=== PATIENT | female | born 1965 | race Caucasian/White ===

== ENCOUNTER 2019-06-11 08:42 | Emergency (ER) | payer BC ==
[2019-06-11 08:53] VITALS: BP 146/103
--- NOTE | 2019-06-11 10:08 | UC ---
Back Pain HPI - HPI Summary HPI Summary: 53 yo female presents with back pain. She tells me that yesterday she was shoveling snow and moving furniture - as the day progressed she noticed pain in her right middle back that "catches" and "spasms". She took a leftover tramadol last night that took the edge off. Took tylenol this morning with no relief. She denies specific injury, radiation of pain, numbness, tingling, SOB, chest pain, cough, urinary symptoms. - History of Current Complaint Chief Complaint: UCBackPain Stated Complaint: BACK SPASMS Time Seen by Provider: 06/11/19 10:08 Hx Obtained From: Patient Onset/Duration: Sudden Onset Severity Initially: Moderate Severity Currently: Severe Pain Intensity: 8 Pain Scale Used: 0-10 Numeric - Allergies/Home Medications Allergies/Adverse Reactions: Allergies Allergy/AdvReac Type Severity Reaction Status Date / Time No Known Allergies Allergy Verified 06/11/19 08:53 PMH/Surg Hx/FS Hx/Imm Hx Respiratory History: Asthma - Surgical History Surgical History: Yes Surgery Procedure, Year, and Place: TONSILS. RIGHT KNEE SCOPE-CLEANED UP. RIGHT ANKLE REMOVED SCAR TISSUE - Family History Known Family History: Positive: Hypertension - Social History Occupation: Employed Full-time Lives: With Family Alcohol Use: None Substance Use Type: None Smoking Status (MU): Never Smoked Tobacco - Immunization History Hx Tetanus, Diphtheria Vaccination: Yes - Confirmed Tetanus is UTD with PCP Review of Systems All Other Systems Reviewed And Are Negative: No Constitutional: Positive: Negative Skin: Positive: Negative Respiratory: Positive: Negative Cardiovascular: Positive: Negative Neurovascular: Positive: Negative Musculoskeletal: Positive: Other: - Back pain Neurological: Positive: Negative Psychological: Positive: Negative Physical Exam - Summary Physical Exam Summary: GENERAL: NAD. WDWN. No pain distress. SKIN: No rashes, sores, lesions, or open wounds. NECK: Supple. FROM. Nontender. No lymphadenopathy. CHEST: CTAB. No r/r/w. No accessory muscle use. Breathing comfortably and in no distress. CV: RRR. Pulses intact. Cap refill <2seconds MSK: TTP over thoracic RIGHT paraspinal muscles. Pain with reaching arms above head and twisting trunk. Negative SLR b/l. Strength 5/5 B/L LEs and UEs including dorsiflexion and plantar flexion. NEURO: Alert. Sensations intact B/L UEs and C4-T1 and LEs L3-S1. Reflexes intact PSYCH: Age appropriate behavior. Triage Information Reviewed: Yes Vital Signs: Initial Vital Signs Temp 98.5 F 06/11/19 08:51 Pulse 110 06/11/19 08:51 Resp 20 06/11/19 08:51 BP 146/103 06/11/19 08:51 Pulse Ox 100 06/11/19 08:51 Vital Signs Reviewed: Yes Back Pain Course/Dx - Course Course Of Treatment: Suspect muscle spasm from shoveling snow and moving furniture. In the clinic she was given toradol IM. Will rx for naproxen and flexeril and advise to practice gentle stretches. F/u if symptoms worsen or do not improve in 2-3 days - Differential Dx/Diagnosis Provider Diagnosis: Muscle spasm Discharge ED - Sign-Out/Discharge Documenting (check all that apply): Patient Departure All imaging exams completed and their final reports reviewed: No Studies - Discharge Plan Condition: Stable Disposition: HOME Prescriptions: Cyclobenzaprine TAB* [Flexeril 10 MG TAB*] 10 mg PO TID PRN #15 tab PRN Reason: Pain - Moderate Naproxen [Naproxen 500 mg tab] 500 mg PO BID PRN #14 tablet.dr PRN Reason: Pain - Mild Patient Education Materials: Muscle Spasm (ED), Thoracic Back Strain (ED) Referrals: Malgorzata Glaser MD [Primary Care Provider] - Additional Instructions: If you develop a fever, shortness of breath, chest pain, new or worsening symptoms - please call your PCP or go to the ED immediately. Your blood pressure was high at todays visit. Please see your primary provider within 4 weeks for recheck and re-evaluation. - Billing Disposition and Condition Condition: STABLE Disposition: Home
[2019-06-11] MEDS ORDERED: Ketorolac *IM* INJ* 60 MG/2 ML VIAL IM ONE (10:16)
== END 2019-06-11 10:44 | disposition home or self-care (01) ==
LOC: UCEAST 08:42
DX: M62.830 Muscle spasm of back (principal); J45.909 Unspecified asthma, uncomplicated
CPT/HCPCS: 99212; G0463; J1885

== ENCOUNTER 2019-08-12 07:52 | Emergency (ER) | payer BC ==
[2019-08-12] MEDS ORDERED: NS 0.9% 1000 ML** 1,000 ML IV ONE ×2 (07:57→09:37)
[2019-08-12] MEDS ORDERED: Adenosine* 3 MG/ML VIAL IV PUSH ONE ×2 (08:07→08:08)
--- NOTE | 2019-08-12 08:08 | ED ---
Palpitations / Dysrhythmia - HPI Summary HPI Summary: The patient is a 53 year-old female presenting to [facility] with a chief complaint of palpitations and chest pressure onset around 0700 this morning. She reports that she was sitting at her dining table when she suddenly felt a fast fluttering sensation and right anterior chest pressure. She measured her heart rate and found it to be in the 170s BPM. She states that she had a similar episode about 15 years ago but had a full work-up without a conclusive diagnosis. She denies any shortness of breath, abdominal pain, edema in the lower extremities, or calf pain. Symptoms are currently rated 3/10 in severity. She has not taken any medication prior to arrival as treatment. No history of SVT, hypertension, diabetes, thyroid disease, or blood clots, although there is family history of cardiac disease. She drinks caffeine, but she didnt have any today. She notes that she recently suffered from URI symptoms ending about a week ago, but she still has a lingering cough. Past medical history of asthma with inhaler use. Nonsmoker, no EtOH, no substance use. Medications reviewed. Allergies noted. - History of Current Complaint Time Seen by Provider: 08/12/19 07:56 Hx Obtained From: Patient Onset/Duration: Sudden Onset, Still Present Timing: Constant Severity Initially: Mild Severity Currently: Mild Character: Fast, Fluttering Aggravating: Nothing Alleviating: Nothing Associated Signs & Symptoms: Negative - Allergy/Home Medications Allergies/Adverse Reactions: Allergies Allergy/AdvReac Type Severity Reaction Status Date / Time No Known Allergies Allergy Verified 06/11/19 08:53 Home Medications: Home Medications Beclomethasone 80 MCG MDI(NF) [Qvar 80 MCG MDI(NF)] 2 puff INH BID 08/12/19 [ History Confirmed 08/12/19] Cetirizine* [ZyrTEC 10 MG TAB*] 10 mg PO DAILY 08/12/19 [History Confirmed 08/12] PMH/Surg Hx/FS Hx/Imm Hx Endocrine/Hematology History: Denies: Hx Diabetes Cardiovascular History: Denies: Hx Deep Vein Thrombosis, Hx Hypertension, Hx Pacemaker/ICD Respiratory History: Reports: Hx Asthma Denies: Hx Pulmonary Embolism History: Denies: Hx Renal Disease Sensory History: Reports: Hx Contacts or Glasses Denies: Hx Hearing Aid Opthamlomology History: Reports: Hx Contacts or Glasses Psychiatric History: Denies: Hx Panic Disorder - Cancer History Hx Chemotherapy: No Hx Radiation Therapy: No - Surgical History Surgical History: Yes Surgery Procedure, Year, and Place: TONSILS. RIGHT KNEE SCOPE-CLEANED UP. RIGHT ANKLE REMOVED SCAR TISSUE - Family History Known Family History: Positive: Cardiac Disease, Hypertension, Diabetes - Social History Alcohol Use: None Hx Substance Use: No Substance Use Type: Reports: None Hx Tobacco Use: No Smoking Status (MU): Never Smoked Tobacco Review of Systems Positive: Palpitations - fluttering, fast, Chest Pain - right anterior pressure Negative: Shortness Of Breath Negative: Abdominal Pain Negative: Myalgia - in the calves, Edema All Other Systems Reviewed And Are Negative: Yes Physical Exam - Summary Physical Exam Summary: Constitutional: Well-developed, Well-nourished, Alert. (-) Distressed Skin: Warm, Dry HENT: Normocephalic; Atraumatic Eyes: Conjunctiva normal Neck: Musculoskeletal ROM normal neck. (-) JVD, (-) Stridor, (-) Tracheal deviation Cardio: Rhythm regular, rate tachycardic, Heart sounds normal; Intact distal pulses; The pedal pulses are 2+ and symmetric. Radial pulses are 2+ and symmetric. (-) Murmur Pulmonary/Chest wall: Effort normal. (-) Respiratory distress, (-) Wheezes, (-) Rales Abd: Soft, (-) tenderness, (-) Distension, (-) Guarding, (-) Rebound Musculoskeletal: (-) Edema Lymph: (-) Cervical adenopathy Neuro: Alert, Oriented x3 Psych: Mood and affect Normal Triage Information Reviewed: Yes Vital Signs Reviewed: Yes Procedures - Sedation Patient Received Moderate/Deep Sedation with Procedure: No Diagnostics - Laboratory Result Diagrams: 08/12/19 08:17 08/12/19 08:17 Lab Statement: Any lab studies that have been ordered have been reviewed, and results considered in the medical decision making process. - EKG 0752 Cardiac Rate: Tachycardia - 187 BPM EKG Rhythm: SVT Summary of EKG Findings: EKG at 0752 reveals SVT at rate of 187 BPM, no STEMI. Dr. Baires has reviewed and interpreted this EKG. 0819 Cardiac Rate: Tachycardia - 130 BPM EKG Rhythm: Sinus Tachycardia EKG Comparison: Other - SVT from previous EKG converted to sinus tachycardia upon placement of second IV, no Adenosine given Summary of EKG Findings: EKG at 0819 reveals sinus tachycardia at rate of 130 BPM, no ischemic changes. Dr. Baires has reviewed and interpreted this EKG. Re-Evaluation - Re-Evaluation First Eval Re-Evaluation Time: 08:15 Change: Improved Comment: Second IV placed, SVT converted to sinus tachycardia, no Adenosine given. Patient's CP and palpitations resolved. Second Eval Re-Evaluation Time: 08:40 Change: Improved Comment: Metoprolol improved HR to 90s Third Eval Re-Evaluation Time: 12:20 Comment: Per nurse, patient ambulated well without CP or SOB, heart rate 110- 120 BPM Fourth Eval Re-Evaluation Time: 12:50 Comment: We discussed results and plan for discharge. Course/Dx - Course Course Of Treatment: Patient is a 53 year-old female presenting with sudden onset fast fluttering palpitations and right anterior chest pressure beginning around 0700 with measured tachycardic heart rate at home. No other noted symptoms such as shortness of breath, abdominal pain, edema in the lower extremities, or calf pain. Similar episode 15 years ago without conclusive diagnosis after complete cardiac workup. Past medical history significant for asthma. Family history significant for cardiac disease, hypertension, and diabetes. Physical exam is significant for tachycardia with regular rhythm without a murmur. An EKG at 0752 reveals SVT at rate of 187 BPM, no STEMI. Patient placed on cardiac cath lab technologist, IV access obtained, and fluids started. SVT converted to sinus tachycardia upon placement of second IV. No Adenosine given. Repeat EKG at 0819 reveals sinus tachycardia at rate of 130 BPM, no ischemic changes. Metoprolol also given, which improved the patient's heart rate to the 90s BPM. She is asymptomatic at this point, will continue to monitor. Blood work obtained to be within normal limits. Negative troponin. D-Dimer of 230. Patient able to ambulate without chest pain or shortness of breath. Patient is safe for discharge. Patient agreeable with plan. - Diagnoses Provider Diagnoses: SVT (supraventricular tachycardia) Discharge ED - Sign-Out/Discharge Documenting (check all that apply): Patient Departure - Patient will be discharged home. - Discharge Plan Condition: Stable Disposition: HOME Patient Education Materials: Supraventricular Tachycardia (ED) Referrals: Malgorzata Glaser MD [Medical Doctor] - 2 Days Additional Instructions: Follow up with your primary care provider in 1-2 days. Return to the emergency department for any new or worsening symptoms. - Billing Disposition and Condition Condition: STABLE Disposition: Home - Attestation Statements Document Initiated by Elle: Yes Documenting Scribe: Ramona White Provider For Whom Elle is Documenting (Include Credential): Dr. Bryson Baires DO Scribe Attestation: Ramona Beltrán scribed for Dr. Bryson Baires DO on 08/12/19 at 1333. Scribe Documentation Reviewed: Yes Provider Attestation: The documentation as recorded by the Ramona smallwood accurately reflects the service I personally performed and the decisions made by me, Dr. Bryson Baires DO Status of Scribtosin Document: Viewed
[2019-08-12] MEDS ORDERED: Metoprolol Tartrate IV* 1 MG/ML 5 ML VIAL IV ONE (08:23)
[2019-08-12 08:28] LABS: ABS Basophils 0.1 10^3/ul (0-0.2); ABS Eosinophils 0.4 10^3/ul (0-0.6); ABS Lymphocytes 2.4 10^3/ul (1.0-4.8); ABS Neutrophils 6.4 10^3/ul (1.5-7.7); Eosinophil % 4.2 %; Hematocrit 42 % (35-47); Hemoglobin 13.9 g/dL (12.0-16.0); Lymphocyte % 23.4 %; Mean Corpuscular HGB Conc 33 g/dL (31-36); Mean Corpuscular Hemoglobin 27 pg (27-31); Mean Corpuscular Volume 82 fL (80-97); Mean Platelet Volume 7.4 fL (7.4-10.4); Platelet Count 394 10^3/uL (150-450); Red Blood Count 5.15 10^6 /uL (3.70-4.87); Red Cell Distribution Width 14 % (10-15); White Blood Count 10.3 10^3/uL (3.5-10.8)
[2019-08-12 08:49] LABS: Albumin 4.1 g/dL (3.2-5.2); Albumin/Globulin Ratio 1.1 (1-3); BUN/Creatinine Ratio 14.4 (8-20); Calcium 9.5 mg/dL (8.6-10.3); EGFR African American 79.3 (>60); EGFR Non-African American 65.5 (>60); Globulin 3.7 g/dL (2-4); Magnesium 2.1 mg/dL (1.9-2.7); Potassium 3.6 mmol/L (3.5-5.0); Total Bilirubin 0.5 mg/dL (0.2-1.0); Total Protein 7.8 g/dL (6.4-8.9)
[2019-08-12 09:06] LABS: TSH (Thyroid Stimulating Horm) 1.48 mcIU/mL (0.34-5.60)
[2019-08-12 13:38] VITALS: BP 152/84
== END 2019-08-12 13:49 | disposition home or self-care (01) ==
LOC: ED 07:52
DX: I47.1 Supraventricular tachycardia (principal); J45.909 Unspecified asthma, uncomplicated; Z79.899 Other long term (current) drug therapy
CPT/HCPCS: 36415; 80053; 83735; 84443; 84484; 85025; 85379; 93005; 96361; 96374; 99283; J0153; J3490